=== PATIENT | female | born 1985 | race Hispanic/Latino ===

== ENCOUNTER 2020-03-25 17:17 | Emergency (ER) | payer OTHER, MEDICAID, SELFPAY ==
[2020-03-25] VITALS (10 sets, daily range): BP systolic 157–230; BP diastolic 77–136; PULSE 84–116; RESP 16–23; TEMP 36.7; O2SAT 92–100; BMI 43.9
--- NOTE | 2020-03-25 18:08 | ED.GIBLEED ---
HPI - GI Bleed General Chief complaint: GI Bleed Stated complaint: states vomiting blood Time Seen by Provider: 03/25/20 18:08 Source: patient and family Limitations: no limitations History of Present Illness HPI Narrative: 34-year-old female nonsmoker with history of hypertension, gastritis, cyclic vomiting, diabetes and chronic kidney disease presents for evaluation of persistent vomiting with some epigastric discomfort followed by hematemesis over the past day or 2. She is not dizzy nor weak or lightheaded. She denies any fever or chills. She denies any chest pain or shortness of breath. She feels quite anxious and is concerned that she has not kept her medications down. She would normally go to [facility], however she was closer to our facility and came here instead. She does not have any alcohol history and no known history of esophageal varices. She has no history of liver disease use of NSAIDs or blood thinners. MD complaint: blood streaked emesis Onset (ago): hour(s) Pain Consistency: constant Severity: moderate Relieving factors: none Exacerbating factors: none Context: history of GI bleed Treatments Prior to Arrival: none Review of Systems Constitutional Constitutional: Denies chills, Denies fatigue, Denies fever(s), Denies frequent falls, Denies lethargy and Denies weakness Eyes Eyes: Denies change in vision, Denies eye discharge, Denies irritation and Denies loss of vision ENT Ears, Nose, Mouth, and Throat: Denies change in voice, Denies dizziness, Denies neck pain, Denies sore throat and Denies throat swelling Cardiovascular Cardiovascular: Denies chest pain, Denies irregular heart rhythm, Denies lightheadedness, Denies palpitations, Denies dyspnea, Denies dyspnea on exertion and Denies orthopnea Respiratory Respiratory: Denies cough, Denies dyspnea, Denies dyspnea on exertion and Denies wheezing Gastrointestinal Gastrointestinal: Denies abdominal pain, Denies change in bowel habits, Denies diarrhea, Reports nausea, Reports vomiting and Reports hematemesis Musculoskeletal Musculoskeletal: Denies neck pain and Denies numbness Integumentary/Breasts Skin/Breast: Denies pruritus, Denies erythema, Denies rash and Denies wounds Neurologic Neurologic: Denies behavioral changes, Denies confusion, Denies dizziness, Denies frequent falls, Denies loss of vision, Denies numbness and Denies weakness Psychiatric Psychiatric: Denies anxiety, Denies behavioral changes, Denies confusion, Denies depression, Denies homicidal ideation and Denies suicidal ideation Endocrine Endocrine: Denies fatigue, Denies flushing and Denies palpitations Hematologic/Lymphatic Hematologic/Lymphatic: Denies easy bruising Allergic/Immunologic Allergic/Immunologic: Denies urticaria, Denies throat swelling and Denies wheezing Patient History Social History Smoking Status: Never smoker Smoking Status: Never smoker alcohol intake frequency: holidays/special occasions only Substance Use Type: marijuana Exam Narrative Exam Narrative: GENERAL: [34] year old patient appears stated age. Well-nourished, well-developed patient, in mild distress. Visibly anxious, quite upset HEAD: Atraumatic. Normocephalic. EYES: Pupils equal round and reactive. Extraocular motions intact. No scleral icterus. No injection or drainage. ENT: Nose without bleeding, purulent drainage. Throat without erythema, tonsillar hypertrophy or exudate. Airway patent. NECK: Trachea midline. Non tender CARDIOVASCULAR: Regular rate and rhythm without murmurs, gallops, or rubs. RESPIRATORY: Clear to auscultation. Breath sounds equal bilaterally. No wheezes, rales, or rhonchi. GASTROINTESTINAL: Abdomen soft, non-tender, nondistended. EXTREMITIES: No edema or joint tenderness. BACK: Nontender without deformity or crepitance. No flank tenderness. NEURO: AOx3. SKIN: No rash or erythema of visible areas Initial Vital Signs Initial Vital Signs: Vital Signs Temperature 98.0 F 03/25/20 17:27 Pulse Rate 116 H 03/25/20 17:27 Respiratory Rate 16 03/25/20 17:27 Blood Pressure 230/136 H 03/25/20 17:27 Pulse Oximetry 98 03/25/20 17:27 Course Course Course Narrative: Initially our surgeon consulted to see patient in given her presentation of upper gastrointestinal bleeding. He was able to evaluate the patient at the bedside but as her labs returned and we received paperwork from prior admissions at outside facility it was quickly evident that she is most appropriate be cared for at a facility with nephrology at minimum. Call to [facility] and initial consultation with contribution solicitor GI who is in quick agreement and has no significant additions. Next call to hospitalist (Lyndon) who is happy to accept Orders Ordered: Discontinued Medications Hydromorphone HCl (Dilaudid) 0.5 mg IV NOW ONE Stop: 03/25/20 18:14 Last Admin: 03/25/20 18:20 Dose: 0.5 mg Documented by: MARY Lorazepam (Ativan) 0.5 mg IV NOW ONE Stop: 03/25/20 18:50 Last Admin: 03/25/20 19:46 Dose: 0.5 mg Documented by: MARY Lorazepam (Ativan) 0.5 mg IV NOW ONE Stop: 03/25/20 20:57 Last Admin: 03/25/20 21:04 Dose: 0.5 mg Documented by: NIESHA Ondansetron HCl (Zofran) 4 mg IV NOW ONE Stop: 03/25/20 18:14 Last Admin: 03/25/20 18:20 Dose: 4 mg Documented by: MARY Pantoprazole Sodium (Protonix) 40 mg IV NOW ONE Stop: 03/25/20 18:14 Last Admin: 03/25/20 18:21 Dose: 40 mg Documented by: MARY Prochlorperazine (Compazine) 10 mg IV NOW ONE Stop: 03/25/20 18:42 Last Admin: 03/25/20 18:46 Dose: 10 mg Documented by: MARY Vital Signs Vital signs: Vital Signs - 8 hr 03/25/20 17:27 Temperature 98.0 F Pulse Rate 116 H Respiratory Rate 16 Blood Pressure 230/136 H Pulse Oximetry 98 MDM - GI Bleed Lab Data Result diagrams: 03/25/20 18:10 03/25/20 18:10 Labs: Lab Results 03/25/20 03/25/20 03/25/20 Range/Units 18:10 18:10 18:10 WBC 16.7 H (4.5-11.0) X10^3/uL RBC 4.39 (4.0-5.2) X10^6/uL Hgb 11.7 L (12.0-16.0) g/dL Hct 35.6 L (36-46) % MCV 81.0 (80-100) fL MCH 26.6 (26-34) PG MCHC 32.9 (30-36) % RDW 15.8 H (11.6-14.8) % Plt Count 405 H (150-400) X10^3/uL Neut % (Auto) 92.1 H (50-75) % Lymph % (Auto) 5.0 L (25-40) % [place] % (Auto) 2.4 L (3-14) % Eos % (Auto) 0.0 L (2-4) % Baso % (Auto) 0.5 (0-2) % Neut # (Auto) 36482 H (4671-0235) /uL Lymph # (Auto) 800 L (8872-7483) /uL [place] # (Auto) 400 (0-900) /uL Eos # (Auto) 0 (0-450) /uL Baso # (Auto) 100 (0-100) /uL PT 11.9 (10.1-12.7) SECONDS INR 1.0 (0.9-1.3) APTT 32 (26.4-36.2) SECONDS Sodium 138 (137-145) mmol/L Potassium 3.5 (3.4-5.1) mmol/L Chloride 99 (98-107) mmol/L Carbon Dioxide 24 (22-32) mmol/L BUN 52 H (7-17) mg/dL Creatinine 4.46 H (0.52-1.04) mg/dL Estimated GFR 11.4 L (>60) mL/min BUN/Creatinine Ratio 11.7 (6-22) Glucose 363 H (70-100) mg/dL Calcium 9.5 (8.4-10.2) mg/dL Total Bilirubin 0.7 (0.2-1.3) mg/dL AST 23 (14-36) IU/L ALT 16 (<35) IU/L Alkaline Phosphatase 174 H (38-126) U/L Total Protein 9.1 H (6.3-8.2) g/dL Albumin 4.8 (3.5-5.0) g/dL Globulin 4.3 H (1.7-4.1) g/dL Albumin/Globulin Ratio 1.1 (1.0-2.8) Lipase 267 (23-300) U/L Discharge Plan Departure Patient Disposition: [facility] Clinical Impression: Upper gastrointestinal hemorrhage, Acute kidney injury Discharge Date/Time: 03/25/20 21:24
[2020-03-25 18:19] LABS: Add Manual Diff / Slide Review NO; Basophils Absolute Auto 100 /uL (0-100); Basophils Percent Auto 0.5 % (0-2); Eosinophils Absolute Auto 0 /uL (0-450); Hematocrit 35.6 % (36-46); Hemoglobin 11.7 g/dL (12.0-16.0); Lymphocytes Absolute Auto 800 /uL (1100-4500); Mean Corpuscular HGB Conc 32.9 % (30-36); Mean Corpuscular Hemoglobin 26.6 PG (26-34); Monocytes Absolute Auto 400 /uL (0-900); Monocytes Percent Auto 2.4 % (3-14); Neutrophils Absolute Auto 15400 /uL (1500-7000); Neutrophils Percent Auto 92.1 % (50-75); Platelet Count 405 X10^3/uL (150-400); Red Blood Cell Count 4.39 X10^6/uL (4.0-5.2); Red Cell Distribution Width 15.8 % (11.6-14.8); White Blood Cell Count 16.7 X10^3/uL (4.5-11.0)
[2020-03-25] MEDS: HYDROMORPHONE 0.5 MG INJ IV (18:20)
[2020-03-25] MEDS: ONDANSETRON 4 MG/2 ML INJ IV (18:20)
[2020-03-25] MEDS: PANTOPRAZOLE 40 MG VIAL IV (18:21)
[2020-03-25 18:25] LABS: Prothrombin Time 11.9 SECONDS (10.1-12.7)
[2020-03-25 18:28] LABS: PTT Partial Thromboplastin Tim 32 SECONDS (26.4-36.2)
[2020-03-25 18:29] LABS: Alanine Aminotransferase 16 IU/L (<35); Albumin 4.8 g/dL (3.5-5.0); Albumin Globulin Ratio 1.1 (1.0-2.8); Alkaline Phosphatase 174 U/L (38-126); Aspartate Aminotransferase 23 IU/L (14-36); BUN Creatinine Ratio 11.7 (6-22); Bilirubin Total 0.7 mg/dL (0.2-1.3); Blood Urea Nitrogen 52 mg/dL (7-17); Calcium 9.5 mg/dL (8.4-10.2); Carbon Dioxide 24 mmol/L (22-32); Chloride 99 mmol/L (98-107); Estimated Glomerular Filt Rate 11.4 mL/min (>60); Globulin 4.3 g/dL (1.7-4.1); Glucose 363 mg/dL (70-100); HEMOLYSIS < 15 (0-50); Lipase 267 U/L (23-300); Potassium 3.5 mmol/L (3.4-5.1); Sodium 138 mmol/L (137-145); Total Protein 9.1 g/dL (6.3-8.2)
--- NOTE | 2020-03-25 18:37 | PC.NURSE ---
resp at bedside performing ekg
[2020-03-25] MEDS: PROCHLORPERAZINE 10 MG/2 ML VIAL IV (18:46)
[2020-03-25] MEDS: LORazepam 2 MG/ML INJ 0.5 MG IV ×2 (19:46→21:04)
--- NOTE | 2020-03-25 21:06 | PC.NURSE ---
Pt w/ significant anxiety, crying, hyperventilating. Dr. Marrero ordered Ativan 0.5 mg IV which was administered. NWA aware and will continue to monitor patient en route to [facility].
== END 2020-03-25 21:24 | disposition short-term general hospital (02) ==
PROVIDERS: Emergency Medicine; Emergency Provider Emergency Medicine
DX: K92.2 Gastrointestinal hemorrhage, unspecified (principal); N17.9 Acute kidney failure, unspecified; F41.9 Anxiety disorder, unspecified
CPT/HCPCS: 36415; 80053; 83690; 85025; 85610; 85730; 93005; 96374; 96375; 96376; 99284; C9113; J0780; J1170; J2060; J2405